=== PATIENT | male | born 1990 | race Caucasian/White ===

== ENCOUNTER 2016-11-02 13:37 | Emergency (ER) | payer SELFPAY | END 2016-11-02 13:38 | disposition left against medical advice (07) | LOC: ED 13:37 | DX: R06.02 Shortness of breath (principal); Z53.21 Procedure and treatment not carried out due to patient leaving prior to being seen by health care provider ==

== ENCOUNTER 2016-11-02 22:40 | Emergency (ER) | payer SELFPAY ==
[2016-11-03] MEDS ORDERED: DELTASONE PO ONE (01:56)
--- NOTE | 2016-11-03 01:56 | Emergency Department Report ---
ED Shortness of Breath HPI - General Chief Complaint: Dyspnea/Respdistress Stated Complaint: SOB Time Seen by Provider: 11/03/16 01:56 Source: patient Mode of arrival: Ambulatory Limitations: No Limitations - History of Present Illness Initial Comments: Patient reports difficulty breathing and wheezing that started 2 days ago. He reports he is currently out of his albuterol inhaler Complaint: shortness of breath Onset/Timin -: days(s) Radiation: other (none) Severity: moderate Pain Scale: 6 Quality: other (none) Consistency: constant Improves With: bronchodilators Worsens With: inspiration Known History Of: asthma Context: allergen exposure Associated Symptoms: denies other symptoms Treatments Prior to Arrival: none - Related Data Home Oxygen Therapy: No Previous Rx's Medication Instructions Recorded Last Taken Type Omeprazole Magnesium [PriLOSEC Otc] 20 mg PO QDAY #30 tablet. 09/13/16 Unknown Rx Albuterol Sulfate [Ventolin HFA] 2 puff IH Q4H PRN #1 hfa.aer.ad 11/03/16 Unknown Rx predniSONE [Deltasone] 20 mg PO QDAY #5 tab 11/03/16 Unknown Rx Allergies Allergy/AdvReac Type Severity Reaction Status Date / Time No Known Allergies Allergy Unverified 09/13/16 15:55 ED Review of Systems ROS: Stated complaint: SOB Other details as noted in HPI Constitutional: denies: chills, diaphoresis, fever, malaise, weakness ENT: denies: ear pain, throat pain, dental pain, hearing loss, epistaxis, congestion Respiratory: shortness of breath, wheezing. denies: cough, orthopnea, SOB with exertion, SOB at rest, stridor Cardiovascular: denies: chest pain, palpitations, dyspnea on exertion, orthopnea , edema, syncope, paroxysmal nocturnal dyspnea Skin: denies: rash, lesions, change in color, change in hair/nails, pruritus Hematological/Lymphatic: denies: easy bleeding, easy bruising, swollen glands ED Past Medical Hx - Past Medical History Hx Asthma: Yes - Social History Smoking Status: Never Smoker Substance Use Type: None - Medications Home Medications: Home Medications Medication Instructions Recorded Confirmed Last Taken Type Omeprazole Magnesium [PriLOSEC Otc] 20 mg PO QDAY #30 tablet. 09/13/16 Unknown Rx Albuterol Sulfate [Ventolin HFA] 2 puff IH Q4H PRN #1 hfa.aer.ad 11/03/16 Unknown Rx predniSONE [Deltasone] 20 mg PO QDAY #5 tab 11/03/16 Unknown Rx ED Physical Exam - General Limitations: No Limitations General appearance: alert, in no apparent distress - Head Head exam: Present: atraumatic - ENT ENT exam: Present: normal exam, normal orophraynx, mucous membranes moist, TM's normal bilaterally, normal external ear exam. Absent: mucous membranes dry - Neck Neck exam: Present: normal inspection, full ROM. Absent: tenderness, meningismus, lymphadenopathy, thyromegaly - Respiratory Respiratory exam: Present: wheezes. Absent: normal lung sounds bilaterally, respiratory distress, rales, rhonchi, stridor, chest wall tenderness, accessory muscle use, decreased breath sounds, prolonged expiratory - Cardiovascular Cardiovascular Exam: Present: regular rate, normal rhythm, normal heart sounds. Absent: systolic murmur, diastolic murmur, rubs, gallop, clicks, JVD, S3, S4 - Neurological Exam Neurological exam: Present: alert, oriented X3, CN II-XII intact, normal gait, reflexes normal. Absent: motor sensory deficit - Skin Skin exam: Present: warm, dry, intact, normal color. Absent: rash ED Course Vital Signs 11/02/16 11/03/16 11/03/16 22:44 03:46 03:53 Temperature 97.8 F Pulse Rate 73 Pulse Rate [ 69 74 Posterior Bilateral] Respiratory 18 Rate Respiratory 17 16 Rate [Posterior Bilateral] Blood Pressure 136/94 [Right] O2 Sat by Pulse 98 Oximetry - Reevaluation(s) Reevaluation #1: 11/03/16 02:40 Duoneb tx and prednisone ordered ED Medical Decision Making - Lab Data Vital Signs 11/02/16 22:44 Temperature 97.8 F Pulse Rate 73 Respiratory 18 Rate Blood Pressure 136/94 [Right] O2 Sat by Pulse 98 Oximetry - Medical Decision Making During the course of ED, duo neb treatment and prednisone was ordered. Patient reports symptomatic relief from treatment given a ED. He was sent home with prescription for Ventolin HFA and prednisone, instructed to follow with selector referrals given at discharge, he verbalize understanding - Differential Diagnosis Asthma, URI Critical care attestation.: If time is entered above; I have spent that time in minutes in the direct care of this critically ill patient, excluding procedure time. ED Disposition Clinical Impression: Asthma Qualifiers: Asthma severity: mild intermittent Asthma complication type: with acute exacerbation Qualified Code(s): J45.21 - Mild intermittent asthma with (acute) exacerbation Disposition: DISCHARGED TO HOME OR SELFCARE Is pt being admited?: No Does the pt Need Aspirin: No Condition: Stable Instructions: Asthma (ED) Additional Instructions: Take medication as directed. Follow up with the selective referrals given at discharge. Return back to the ED for worsening symptoms or concerns Prescriptions: predniSONE [Deltasone] 20 mg PO QDAY #5 tab Albuterol Sulfate [Ventolin HFA] 2 puff IH Q4H PRN #1 hfa.aer.ad PRN Reason: Shortness Of Breath Referrals: PRIMARY CARE, [Primary Care Provider] - 3-5 Days [facility] [Outside] - 3-5 Days Forms: Work/School Release Form(ED) Time of Disposition: 02:45
--- NOTE | 2016-11-03 02:51 | Admit Criteria Form ---
Admission Criteria Documentation: ASTHMA: OBSERVATION CARE USE THIS FORM ONLY WHEN INPATIENT ADMISSION CRITERIA ARE NOT MET. (Place X for any and all applicable criteria): Placement for observation care may be appropriate for a patient with moderate to severe asthma with ANY ONE of the following (1)(2)(3)(4): []I. Significant asthma exacerbation in an adult that persists after treatment as indicated by ALL of the following: []a) Patient has received acute treatment and observation for 1 to 2 hours. []b) Significant findings persist as indicated by ANY ONE of the following: []i) Respiratory rate greater than 24 breaths per minute []ii) Continued accessory muscle use []iii) Continued retractions []iv) Patient unable to complete full sentences in one breath []v) Peak expiratory flow rate less than 60% of predicted or personal best [A](5)(6) []vi) Peak expiratory flow rate [A] less than 70% of predicted or personal best and identified risk factor indicated by ANY ONE of the following(5)(6): []1) History of sudden severe asthma exacerbation []2) History of intubation for asthma []3) Previous inpatient admission for asthma []4) Three or more emergency care visits for asthma []5) Hospital or emergency care visit for asthma in the past month []6) Use of more than 2 canisters of inhaled beta2-agonist per month []7) Inadequate access to medical care or medications []8) Lack of transportation to the hospital []9) Home circumstances do not allow for adequate home care. []10) []11) Comorbidity (eg, cardiovascular disease, other chronic lung disease) []II. Significant asthma exacerbation in a child that persists after treatment as indicated by ALL of the following(7): []a) Patient has received acute treatment and observation for 1 to 2 hours. []b) Significant findings persist as indicated by ANY ONE of the following: []i) Persistent tachypnea as indicated by respiratory rate that is ANY ONE of the following: []1) >60 breaths/min for []2) >55 breaths/min for ages 1 month to 3 months []3) >45 breaths/min for ages 4 months to 6 months []4) >40 breaths/min for ages 7 months to 1yr []5) >35 breaths/min for ages 1 yr to 7 yrs []6) >30 breaths/min for age older than 7 years []7) >24 breaths per minute for age older than 12 years []ii) Continued accessory muscle use []iii) Continued retractions []iv) Patient unable to complete full sentences in one breath []v) Peak flow <50% of best or predicted []vi) Airflow measurement less than 70% of predicted or personal best and an identified risk factor indicated by ANY ONE of the following(5): []1) History of sudden severe asthma exacerbation []2) History of intubation for asthma []3) Previous inpatient admission for asthma in past year []4) Three or more emergency care visits for asthma in past year []5) Hospital or emergency care visit for asthma in past month []6) Use of more than 2 canisters of short-acting inhaled beta2- agonist per month []7) Inadequate access to medical care or medications []8) Difficulty in obtaining transportation to the hospital in event of further deterioration []9) Difficult home circumstances that do not allow for adequate home care []10) Comorbidities, such as cardiovascular disease or other chronic lung disease [X]III. Other observation care needs ( See General Criteria: Observation Care ) The original [facility] [employer] content created by [employer] has been revised. The portions of the content which have been revised are identified through the use of italic text, and [facility] has neither reviewed nor approved the modified material. All other unmodified content is copyright [facility] [employer]. Please see references footnoted in the original [facility] edition 2015 Admission Criteria Met: Pending
[2016-11-03] MEDS ORDERED: DUONEB 0.5 MG-3 MG/3 ML SOLN IH ONE ×2 (03:41→03:42)
[2016-11-03 04:46] VITALS: BP 128/88
== END 2016-11-03 02:47 | disposition home or self-care (01) ==
LOC: ED 22:40
DX: J45.21 Mild intermittent asthma with (acute) exacerbation (principal)
CPT/HCPCS: 94640; 99283; J7512

== ENCOUNTER 2016-11-27 10:45 | Emergency (ER) | payer SELFPAY ==
[2016-11-27 11:10] VITALS: BP 132/85
[2016-11-27] MEDS ORDERED: DUONEB 0.5 MG-3 MG/3 ML SOLN IH ONE ×2 (12:43→13:37)
[2016-11-27] MEDS ORDERED: DELTASONE PO ONE (12:44)
--- NOTE | 2016-11-27 13:48 | Emergency Department Report ---
ED Asthma HPI - General Chief Complaint: Adult Asthma Stated Complaint: SOB Time Seen by Provider: 11/27/16 12:27 Source: patient Mode of arrival: Ambulatory Limitations: No Limitations - History of Present Illness Initial Comments: 26-year-old male past medical history IBS, asthma presents with wheezing today. Patient denies any history of intubations, has been years since he was hospitalized for asthma. Patient speaking in full sentences no audible stridor or wheezing. Patient denies smoking. Denies any cough no fever no chills. Patient states he ran out of his albuterol inhaler at home. Patient has no visible retractions or work of breathing MD Complaint: wheezing Onset/Timin -: hour(s) Asthma History: childhood onset Severity: mild Context: ran out of meds Associated Symptoms: none - Related Data Current Asthma Therapy: inhaled bronchodilator Baseline Peak Flow (L/min): 250 Previous Rx's Medication Instructions Recorded Last Taken Type Omeprazole Magnesium [PriLOSEC Otc] 20 mg PO QDAY #30 tablet. 09/13/16 Unknown Rx Albuterol Sulfate [Ventolin HFA] 2 puff IH Q4H PRN #1 hfa.aer.ad 11/27/16 Unknown Rx predniSONE [Deltasone] 20 mg PO QDAY #5 tab 11/27/16 Unknown Rx predniSONE [Deltasone] 40 mg PO QDAY #10 tab 11/27/16 Unknown Rx Allergies Allergy/AdvReac Type Severity Reaction Status Date / Time No Known Allergies Allergy Unverified 09/13/16 15:55 ED Review of Systems ROS: Stated complaint: SOB Other details as noted in HPI ED Past Medical Hx - Past Medical History Previous Medical History?: Yes Hx Asthma: Yes - Surgical History Past Surgical History?: No - Social History Smoking Status: Never Smoker Substance Use Type: None - Medications Home Medications: Home Medications Medication Instructions Recorded Confirmed Last Taken Type Omeprazole Magnesium [PriLOSEC Otc] 20 mg PO QDAY #30 tablet. 09/13/16 Unknown Rx Albuterol Sulfate [Ventolin HFA] 2 puff IH Q4H PRN #1 hfa.aer.ad 11/27/16 Unknown Rx predniSONE [Deltasone] 20 mg PO QDAY #5 tab 11/27/16 Unknown Rx predniSONE [Deltasone] 40 mg PO QDAY #10 tab 11/27/16 Unknown Rx ED Physical Exam - General Limitations: No Limitations General appearance: alert, in no apparent distress - Head Head exam: Present: atraumatic, normocephalic - Eye Eye exam: Present: normal appearance - ENT ENT exam: Present: mucous membranes moist - Neck Neck exam: Present: normal inspection - Respiratory Respiratory exam: Present: normal lung sounds bilaterally, wheezes (mild wheezing bilaterally), other (patient has no chest wall contractions/retractions ) - Cardiovascular Cardiovascular Exam: Present: regular rate, normal rhythm. Absent: systolic murmur, diastolic murmur, rubs, gallop - GI/Abdominal GI/Abdominal exam: Present: soft, normal bowel sounds - Rectal Rectal exam: Present: deferred - Extremities Exam Extremities exam: Present: normal inspection - Back Exam Back exam: Present: normal inspection - Neurological Exam Neurological exam: Present: alert, oriented X3 - Psychiatric Psychiatric exam: Present: normal affect, normal mood - Skin Skin exam: Present: warm, dry, intact, normal color. Absent: rash ED Course Vital Signs 11/27/16 11/27/16 11/27/16 11:07 13:24 14:07 Temperature 98.3 F Pulse Rate 71 Pulse Rate [ 86 84 Left Lower Lobe ] Respiratory 20 Rate Respiratory 18 18 Rate [Left Lower Lobe] Blood Pressure 132/85 O2 Sat by Pulse 96 Oximetry ED Medical Decision Making - Medical Decision Making A/P: Asthma exacerbation 1-After 2 DuoNeb treatments and 60 mg of prednisone patient's symptoms have almost completely abated, states that he feels significantly better. No longer wheezing on auscultation of bilateral lung jolly. Oxygen 98% on room air while walking. Peak flow now 300 L/m. Patient is 250 L/m. 2-5 day course of prednisone, I refilled patient's albuterol prescription. 3-patient states he now has primary care doctor to follow-up with. Has an appointment next week at [facility]. 4-I advised patient to return to the ED if he experiences worsening shortness of breath wheezing us despite use of Ventolin and prednisone develops any cough fever or chills Critical care attestation.: If time is entered above; I have spent that time in minutes in the direct care of this critically ill patient, excluding procedure time. ED Disposition Clinical Impression: Asthma exacerbation Disposition: DISCHARGED TO HOME OR SELFCARE Is pt being admited?: No Does the pt Need Aspirin: No Condition: Stable Instructions: Asthma (ED) Prescriptions: predniSONE [Deltasone] 20 mg PO QDAY #5 tab predniSONE [Deltasone] 40 mg PO QDAY #10 tab Albuterol Sulfate [Ventolin HFA] 2 puff IH Q4H PRN #1 hfa.aer.ad PRN Reason: Shortness Of Breath Referrals: PRIMARY CAREMD [Primary Care Provider] - 3-5 Days [facility] [Outside] - 3-5 Days [facility] [Outside] - 3-5 Days Time of Disposition: 14:45
== END 2016-11-27 15:01 | disposition home or self-care (01) ==
LOC: ED 10:45
DX: J45.901 Unspecified asthma with (acute) exacerbation (principal)
CPT/HCPCS: 99283; J7512